=== PATIENT | female | born 1960 | race Asian ===

== ENCOUNTER 2016-08-24 12:34 | Emergency (ER) | payer MEDICAID ==
[~2016-08-24] VITALS: Ht 165.1 cm; Wt 79.5 kg
[2016-08-24] MEDS ORDERED: BENZ0.5T6 PO (12:44)
[2016-08-24] MEDS ORDERED: LISI-660 PO (12:44)
[2016-08-24] MEDS ORDERED: HALO2 PO (12:44)
[2016-08-24] MEDS ORDERED: ASPI-556 PO (12:44)
[2016-08-24] MEDS ORDERED: ATOR20TA86 PO (12:44)
[2016-08-24] MEDS ORDERED: OLAN10TA3 PO (12:44)
[2016-08-24] MEDS ORDERED: OLAN7.5T2 PO (12:47)
[2016-08-24 13:12] VITALS: BP 131/82
[2016-08-24] MEDS ORDERED: DEXAMETHASONE SOD PHOS 4 MG/ML VIAL IM ONE (13:15)
== END 2016-08-24 14:02 | disposition home or self-care (01) ==
LOC: EMS 12:36
DX: T78.40XA Allergy, unspecified, initial encounter (principal); S80.862A Insect bite (nonvenomous), left lower leg, initial encounter; S80.861A Insect bite (nonvenomous), right lower leg, initial encounter; S40.862A Insect bite (nonvenomous) of left upper arm, initial encounter; S40.861A Insect bite (nonvenomous) of right upper arm, initial encounter; L03.116 Cellulitis of left lower limb; L03.115 Cellulitis of right lower limb; L03.114 Cellulitis of left upper limb; L03.113 Cellulitis of right upper limb; L08.9 Local infection of the skin and subcutaneous tissue, unspecified; Z79.82 Long term (current) use of aspirin; W57.XXXA Bitten or stung by nonvenomous insect and other nonvenomous arthropods, initial encounter; Y93.89 Activity, other specified; Y92.89 Other specified places as the place of occurrence of the external cause; Y99.8 Other external cause status
CPT/HCPCS: 96372; 99283; J1100

== ENCOUNTER 2016-10-27 13:36 | Emergency (ER) | payer MEDICARE, MEDICAID ==
[~2016-10-27] VITALS: Ht 154.9 cm; Wt 77.3 kg
[~2016-10-27 13:36] MED LIST: ASPI-556 PO; ATOR20TA86 PO; BENZ0.5T6 PO; HALO2 PO; LISI-660 PO; OLAN7.5T2 PO
[2016-10-27] MEDS ORDERED: TETRACAINE HCL/PF 0.5% 4 ML OPHTHALMIC SOLUTION OU ONE (15:15)
[2016-10-27] MEDS ORDERED: FLUORESCEIN SODIUM 1 MG STRIP OU ONE (15:15)
[2016-10-27] MEDS ORDERED: ERYTHROMYCIN 0.5% 3.5 GM TUBE OPHTHALMIC OINTMENT OS ONE (16:00)
[2016-10-27 16:25] VITALS: BP 120/76
== END 2016-10-27 16:26 | disposition home or self-care (01) ==
LOC: EMS 13:37
DX: H10.9 Unspecified conjunctivitis (principal); Z79.82 Long term (current) use of aspirin
CPT/HCPCS: 99284

== ENCOUNTER 2017-11-20 13:38 | Emergency (ER) | payer MEDICARE, OTHER ==
[~2017-11-20] VITALS: Ht 162.6 cm; Wt 79.5 kg
[~2017-11-20 13:38] MED LIST changes: +BENZ0.5T44 PO; -BENZ0.5T6 PO
[2017-11-20] MEDS ORDERED: ADV100 IH (13:45)
[2017-11-20] MEDS ORDERED: PredniSONE 20 MG TABLET PO ONE (14:30)
[2017-11-20] MEDS ORDERED: AMOXICILLIN TRIHYDRATE 250 MG CAPSULE PO ONE (14:30)
[2017-11-20] MEDS ORDERED: KETOROLAC TROMETHAMINE 30 MG/ML VIAL IM ONE (14:30)
[2017-11-20] MEDS ORDERED: CIPROFLOXACIN HCL 0.2%/HYDROCORT 1% 10 ML OTIC SUSPENSION AS ONE (14:30)
[2017-11-20] MEDS ORDERED: ACETAMINOPHEN 500 MG TABLET PO ONE (14:30)
[2017-11-20 15:21] VITALS: BP 124/85
== END 2017-11-20 16:03 | disposition home or self-care (01) ==
LOC: EDUNIT# 13:38 → EDBD 13:40 → EMS 13:40
DX: H60.92 Unspecified otitis externa, left ear (principal); F32.9 Major depressive disorder, single episode, unspecified; I10 Essential (primary) hypertension; F20.9 Schizophrenia, unspecified; Z79.899 Other long term (current) drug therapy
CPT/HCPCS: 96372; 99284; J1885; J7512